=== PATIENT | female | born 1985 | race Two or more races ===

== ENCOUNTER 2017-11-26 14:47 | Emergency (ER) | payer MEDICAID, OTHER ==
[~2017-11-26] VITALS: Ht 167.6 cm; Wt 59.0 kg
[2017-11-26 15:06] VITALS: BP 115/80
[2017-11-26] MEDS ORDERED: TRIAMCINOLONE 40MG/ML 1ML VIAL IM ONE (17:15)
== END 2017-11-26 17:30 | disposition home or self-care (01) ==
LOC: ER 14:47
DX: J32.9 Chronic sinusitis, unspecified (principal); R09.81 Nasal congestion; R05 Cough; H92.03 Otalgia, bilateral
CPT/HCPCS: 70450; 81025; 96372; 99285; J3301

== ENCOUNTER 2018-02-27 17:58 | Emergency (ER) | payer MEDICAID ==
[~2018-02-27] VITALS: Ht 165.1 cm; Wt 56.7 kg
[2018-02-27 18:07] VITALS: BP 146/83
[2018-02-27] MEDS ORDERED: TRIAMCINOLONE 40MG/ML 1ML VIAL IM ONE (19:45)
== END 2018-02-27 20:08 | disposition home or self-care (01) ==
LOC: ER 17:58
DX: J45.909 Unspecified asthma, uncomplicated (principal); J32.9 Chronic sinusitis, unspecified
CPT/HCPCS: 96372; 99283; J3301; 90471

== ENCOUNTER 2019-01-03 07:58 | Emergency (ER) | payer MEDICAID ==
[~2019-01-03] VITALS: Ht 165.1 cm; Wt 59.0 kg
[2019-01-03 08:13] VITALS: BP 129/85
[2019-01-03] MEDS ORDERED: cefTRIAXone SOD 1,000 MG VL IM ONE (08:30)
[2019-01-03] MEDS ORDERED: methylPREDNISolone SOD SUCC 125 MG/2 ML VL IM ONE (08:30)
== END 2019-01-03 09:01 | disposition home or self-care (01) ==
LOC: ER 07:59
DX: H66.93 Otitis media, unspecified, bilateral (principal); J03.90 Acute tonsillitis, unspecified; J01.90 Acute sinusitis, unspecified; Z90.49 Acquired absence of other specified parts of digestive tract
CPT/HCPCS: 81025; 96372; 99283; J0696; J2930

== ENCOUNTER 2019-08-18 06:58 | Emergency (ER) | payer MEDICAID ==
[~2019-08-18] VITALS: Ht 165.1 cm; Wt 68.0 kg
[2019-08-18 07:48] VITALS: BP 119/69
== END 2019-08-18 08:26 | disposition home or self-care (01) ==
LOC: ER 06:58
DX: J02.9 Acute pharyngitis, unspecified (principal); J06.9 Acute upper respiratory infection, unspecified; Z90.49 Acquired absence of other specified parts of digestive tract

== ENCOUNTER 2019-11-28 23:52 | Emergency (ER) | payer MEDICAID ==
[~2019-11-28] VITALS: Ht 167.6 cm; Wt 63.5 kg
[2019-11-29 06:42] VITALS: BP 122/80
[2019-11-29] MEDS ORDERED: ALBUTEROL SULF 2.5 MG/0.5ML(0.5%) NEB SOLN NEB ONE (07:00)
[2019-11-29] MEDS ORDERED: IPRATROPIUM BROM 0.5 MG/2.5ML INH SOL NEB ONE (07:00)
[2019-11-29] MEDS ORDERED: methylPREDNISolone SOD SUCC 125 MG/2 ML VL IM ONE (07:00)
== END 2019-11-29 07:27 | disposition home or self-care (01) ==
LOC: ER 23:57
DX: J45.901 Unspecified asthma with (acute) exacerbation (principal); Z90.49 Acquired absence of other specified parts of digestive tract
CPT/HCPCS: 71046; 94640; 96372; 99283; J2930; J7644

== ENCOUNTER 2020-07-21 14:34 | Emergency (ER) | payer MEDICAID ==
[~2020-07-21] VITALS: Ht 165.1 cm; Wt 72.6 kg
[2020-07-21 14:47] VITALS: BP 128/86
== END 2020-07-21 15:39 | disposition home or self-care (01) ==
LOC: ER 14:34
DX: J01.00 Acute maxillary sinusitis, unspecified (principal); J45.909 Unspecified asthma, uncomplicated; Z90.49 Acquired absence of other specified parts of digestive tract

== ENCOUNTER 2021-01-07 21:40 | Emergency (ER) | payer MEDICAID ==
[~2021-01-07] VITALS: Ht 165.1 cm; Wt 72.6 kg
[2021-01-08] MEDS ORDERED: KETOROLAC TROMETH 60MG/2ML VIAL IM ONE (00:45)
[2021-01-08 03:30] VITALS: BP 139/89
== END 2021-01-08 03:50 | disposition home or self-care (01) ==
LOC: ER 21:41
DX: M54.5 Low back pain (principal); R10.30 Lower abdominal pain, unspecified; F41.9 Anxiety disorder, unspecified; J45.909 Unspecified asthma, uncomplicated; Z90.49 Acquired absence of other specified parts of digestive tract; V49.59XA Passenger injured in collision with other motor vehicles in traffic accident, initial encounter; Y93.89 Activity, other specified; Y92.488 Other paved roadways as the place of occurrence of the external cause; Y99.8 Other external cause status
CPT/HCPCS: 71250; 74176; 96372; 99285; J1885

== ENCOUNTER 2021-04-27 21:38 | Emergency (ER) | payer MEDICAID ==
[~2021-04-27] VITALS: Ht 165.1 cm; Wt 59.0 kg
[2021-04-27 22:51] LABS: Basophils # (auto) 0 10 ^3/uL (0-0.2); Eosinophils # (auto) 0 10 ^3/uL (0-0.8); Hematocrit 44.4 % (36.0-46.0); Hemoglobin 15.6 g/dL (12.2-16.2); Lymphocytes # (auto) 0.3 10 ^3/uL (0.4-5.4); Mean Corpuscular Hemoglobin 31.6 pg (28.0-32.0); Mean Corpuscular Hgb Conc. 35.1 g/dL (32.0-36.0); Mean Corpuscular Volume 90.1 fL (80.0-100.0); Monocytes # (auto) 0.3 10 ^3/uL (0-1.3); Monocytes % (auto) 7.9 % (0.0-12.0); Neutrophils # (auto) 3.7 10 ^3/uL (1.6-8.6); Neutrophils % (auto) 85.1 % (37.0-80.0); Nucleated Red Blood Cells % 0.2 %; Red Blood Cells 4.93 10^6/uL (4.0-5.20); White Blood Cell 4.3 10^3/uL (4.4-10.8)
[2021-04-27 23:06] LABS: Albumin 3.7 g/dL (3.4-5.0); Anion Gap 6 (5-15); Blood Urea Nitrogen 10 mg/dL (7-18); Calcium 9.2 mg/dL (8.5-10.1); Carbon Dioxide 26 mmol/L (21-32); Chloride 105 mmol/L (98-107); Glucose 113 mg/dL (74-106); Magnesium 2.6 mg/dL (1.6-2.6); Potassium 3.6 mmol/L (3.5-5.1); Sodium 137 mmol/L (136-145)
[2021-04-27 23:14] LABS: Alanine Aminotransferase 23 U/L (13-56); Alkaline Phosphatase 76 U/L (45-117); Aspartate Aminotransferase 18 U/L (15-37); BUN/Creatinine Ratio 16.4; Bilirubin, Total 0.4 mg/dL (0.2-1.0); GFR African American 144 mL/min; GFR Non-African American 119 mL/min; Total Protein 8.9 g/dL (6.4-8.2)
[2021-04-28] MEDS ORDERED: SODIUM CHLORIDE 0.9% 1,000 ML IV ONE (02:45)
[2021-04-28] MEDS ORDERED: DexAMETHasone SOD PHOS 10MG/1ML VIAL INJ IV ONE (03:15)
[2021-04-28] MEDS ORDERED: ALBUTEROL SULF 2.5 MG/0.5ML(0.5%) NEB SOLN NEB ONE (03:15)
[2021-04-28] MEDS ORDERED: IPRATROPIUM BROM 0.5 MG/2.5ML INH SOL NEB ONE (03:15)
[2021-04-28 05:00] VITALS: BP 117/68
== END 2021-04-28 05:47 | disposition home or self-care (01) ==
LOC: ER 21:38
DX: U07.1 COVID-19 (principal); J12.82 Pneumonia due to coronavirus disease 2019; J45.909 Unspecified asthma, uncomplicated; Z90.49 Acquired absence of other specified parts of digestive tract
CPT/HCPCS: 36415; 71045; 80053; 83605; 83615; 83735; 84484; 85025; 85610; 87426; 93005; 94640; 96361; 96374; 99285; J1100; J7644

== ENCOUNTER 2024-01-19 09:06 | Emergency (ER) | payer MEDICAID ==
[~2024-01-19] VITALS: Ht 165.1 cm; Wt 72.2 kg
[2024-01-19 09:44] VITALS: BP 122/79; PULSE 80; RESP 16; TEMP 98; O2SAT 98
[2024-01-19] MEDS: diphenhdrAMINE HCL 50 MG/1 ML VL IV ONE (10:34)
[2024-01-19] MEDS: FAMOTIDINE (10MG/ML) 2ML VL IV ONE (10:35)
[2024-01-19] MEDS: methylPREDNISolone SOD SUCC 125 MG/2 ML VL IV ONE (10:36)
[2024-01-19] MEDS ORDERED: METH4PAK PO (11:35)
[2024-01-19] MEDS ORDERED: CALA1SUS2 EX (11:35)
[2024-01-19] MEDS ORDERED: DIPH25CA51 PO (11:35)
[2024-01-19] MEDS ORDERED: EPIN0.3I24 IJ (11:35)
== END 2024-01-19 11:50 | disposition home or self-care (01) ==
LOC: ER 09:06
DX: T78.49XA Other allergy, initial encounter (principal); F41.9 Anxiety disorder, unspecified; J45.909 Unspecified asthma, uncomplicated; Z98.890 Other specified postprocedural states; Z79.899 Other long term (current) drug therapy; X58.XXXA Exposure to other specified factors, initial encounter
CPT/HCPCS: 96374; 96375; 99284; J1200; J2930; J3490